=== PATIENT | female | born 1965 | race Caucasian/White ===

== ENCOUNTER 2016-05-12 08:57 | Day surgery (SDC) | payer BC ==
[2016-05-12] MEDS ORDERED: LACTATED RINGERS 1,000 ML IV ONE (09:26)
[2016-05-12] MEDS ORDERED: MIDAZOLAM 2 MG/2 ML VIAL IVP ONE (10:52)
[2016-05-12] MEDS ORDERED: fentaNYL 250 MCG/5 ML VIAL IVP ONE (10:52)
== END 2016-05-12 08:58 | disposition home or self-care (01) ==
PROC: 0DBK8ZX Excision of Ascending Colon, Via Natural or Artificial Opening Endoscopic, Diagnostic (ICD-10-PCS; 2016-05-12)
PROC: 0DBP8ZX Excision of Rectum, Via Natural or Artificial Opening Endoscopic, Diagnostic (ICD-10-PCS; principal; 2016-05-12 10:00)
DX: D12.8 Benign neoplasm of rectum (principal); D12.2 Benign neoplasm of ascending colon; K57.30 Diverticulosis of large intestine without perforation or abscess without bleeding; Z88.2 Allergy status to sulfonamides; Z80.3 Family history of malignant neoplasm of breast; Z82.49 Family history of ischemic heart disease and other diseases of the circulatory system; Z82.62 Family history of osteoporosis
CPT/HCPCS: 45380; 45385; J3010; J7120

== ENCOUNTER 2021-08-22 12:19 | Outpatient (CLI) | payer BC ==
--- NOTE | 2021-09-03 11:18 | Mammography Report ---
BILATERAL DIGITAL SCREENING MAMMOGRAM 3D/2D WITH EXAGGERATED CC: 08/22/2021 CLINICAL: Routine screening. Family history of breast cancer. Comparison is made to exams dated: 03/27/2015 mammogram and 01/24/2014 mammogram - [facility]. The tissue of both breasts is heterogeneously dense. This may lower the sensitivity of m ammography. There is an irregular equal density asymmetry with an obscured margin in the right breast at [address] middle depth. This is more prominent and decreased in size. No other significant masses, calcifications, or other findings are seen in either breast. IMPRESSION: INCOMPLETE: NEEDS ADDITIONAL IMAGING EVALUATION The irregular equal density asymmetry in the right breast is indeterminate. Additional views with po ssible ultrasound are recommended. Based on Tyrer-Cuzick model (a risk assessment model), the patient's lifetime risk is 25.1% and her 1 0 year risk is 9.2%. If a patient has an elevated risk, a more comprehensive evaluation should be con sidered and/or a referral to a genetic counselor. The [employer], [employer], and NCCN Guidelines advise the consideration of Breast MRI as an adjunct to screening mammog duarte in patients whose "Lifetime risk to develop breast cancer" is 20% or higher. This exam was interpreted at Station ID: [id number]. NOTE: For mammograms, a report in lay terms will be sent to the patient. Approximately 15% of breast malignancies will not be visualized mammographically. In the management of a palpable breast mass, a negative mammogram must not discourage biopsy of a clinically suspicious lesion. Electronically Signed By: Mel reyez/[email or web address]:09/03/2021 10:57:38 ACR BI-RADS Category 0: Incomplete 3340F PARENCHYMAL PATTERN: (D) - The breast(s) demonstrate(s) heterogeneously dense fibroglandular parenchy ma. BI-RADS CATEGORY: (0) - 0 Mammo and [place] [id number] Immediate follow-up LATERALITY: (B)
== END 2021-08-22 12:20 | disposition home or self-care (01) ==
LOC: DI.S 12:19
PROVIDERS: ATTEND Registered Nurse
DX: Z12.31 Encounter for screening mammogram for malignant neoplasm of breast (principal); Z80.3 Family history of malignant neoplasm of breast; R92.8 Other abnormal and inconclusive findings on diagnostic imaging of breast

== ENCOUNTER 2021-11-09 08:29 | Day surgery (SDC) | payer BC ==
[~2021-11-09 08:29] MED LIST: PROPOFOL 500 MG/50 ML 500 MG/50 ML VIAL ONE
[2021-11-09] MEDS ORDERED: LACTATED RINGERS 1,000 ML IV ONE ×2 (08:31→10:04)
--- NOTE | 2021-11-09 08:54 | ANESTHESIA ---
Pre-Anesthesia VS, & Labs - Diagnosis GERD, hx colon polyps - Procedure EGD, Colonoscopy Vital Signs: Temp Pulse Resp BP Pulse Ox O2 Flow Rate 37 C 89 16 140/94 H 100 0 11/09/21 08:32 11/09/21 08:32 11/09/21 08:32 11/09/21 08:32 11/09/21 08:32 11/09/21 08:32 Height: 5 ft 1 in Weight (kg): 58 kg Body Mass Index: 24.1 BMI Classification: Normal - NPO >8 hours - Is Patient ?: No - Lab Results Lab results reviewed: Yes Home Medications and Allergies No Known Home Medications 06/04/14 Allergies/Adverse Reactions: Allergies Allergy/AdvReac Type Severity Reaction Status Date / Time amoxicillin Allergy Hives Verified 11/09/21 08:56 Sulfa (Sulfonamide Allergy Rash Verified 05/12/16 09:25 Antibiotics) Anes History & Medical History - Anesthetic History Anesthesia Complications: reports: No previous complications Family history of Anesthesia Complications: Denies Family history of Malignant Hyperthermia: Denies - Medical History Cardiovascular: reports: None Pulmonary: reports: None Gastrointestinal: reports: GERD Urinary: reports: None Musculoskeletal: reports: None Endocrine/Autoimmune: reports: None Skin: reports: None Smoking Status: Never smoker - Surgical History General: reports: Colonoscopy Exam General: Alert, Oriented x3, Cooperative Dental: WNL Mouth Openin Fingerbreadth Neck Mobility: Normal Mallampati classification: II Thyromental Distance: 4-6 cm Respiratory: Lungs clear, Normal breath sounds, No respiratory distress Cardiovascular: Regular rate Neurological: Normal speech Mental/Cognitive Status: Alert/Oriented X3, Normal for patient Cognitive Status: Within normal limits Plan Anesthesia Type: Total IV Consent for Procedure(s) Verified and Reviewed: Yes Code Status: Attempt Resuscitation ASA classification: 2-Mild systemic disease Is this case an emergency?: No
[2021-11-09] MEDS ORDERED: LIDOCAINE-MPF 2% 5 ML VIAL ONE (09:02)
[2021-11-09] MEDS ORDERED: MIDAZOLAM 2 MG/2 ML VIAL ONE (09:10)
[2021-11-09 10:19] VITALS: BP 127/80
--- NOTE | 2021-11-09 12:29 | ANESTHESIA POST OP EVALUATION ---
Anesthesia Post Eval - Post Anesthesia Eval Vitals: Last Vital Signs Temp 36.6 C 11/09/21 10:18 Pulse 60 11/09/21 10:18 Resp 16 11/09/21 10:18 BP 127/80 11/09/21 10:18 Pulse Ox 100 11/09/21 10:18 O2 Flow Rate 0 11/09/21 08:32 CV Function Including HR & BP: Stable Pain Control: Satisfactory Nausea & Vomiting: Negative Mental Status: Baseline Respiratory Status: Airway Patent Hydration Status: Satisfactory Anesthesia Complications: None
== END 2021-11-09 08:30 | disposition home or self-care (01) ==
LOC: SDS 08:29
PROVIDERS: ATTEND Surgery
PROC: 0DB78ZX Excision of Stomach, Pylorus, Via Natural or Artificial Opening Endoscopic, Diagnostic (ICD-10-PCS; principal; 2021-11-09 09:30)
DX: K21.9 Gastro-esophageal reflux disease without esophagitis (principal); K22.2 Esophageal obstruction; K31.7 Polyp of stomach and duodenum; K29.50 Unspecified chronic gastritis without bleeding; K44.9 Diaphragmatic hernia without obstruction or gangrene; K57.30 Diverticulosis of large intestine without perforation or abscess without bleeding; Z86.010 Personal history of colon polyps
CPT/HCPCS: 43239; 43249; 45378; J7120